=== PATIENT | female | born 1950 | race African-American/Black ===

== ENCOUNTER 2018-08-29 02:39 | Emergency (ER) | payer OTHER ==
[~2018-08-29] VITALS: Ht 167.6 cm; Wt 73.0 kg
[2018-08-29 05:25] VITALS: BP 96/56
== END 2018-08-29 05:34 | disposition home or self-care (01) ==
LOC: ER 02:39
DX: T51.0X1A Toxic effect of ethanol, accidental (unintentional), initial encounter (principal); G92 Toxic encephalopathy; R55 Syncope and collapse; I10 Essential (primary) hypertension; Z90.710 Acquired absence of both cervix and uterus; Y92.89 Other specified places as the place of occurrence of the external cause
CPT/HCPCS: 93005; 99283